=== PATIENT | female | born 1945 ===

== ENCOUNTER 2023-10-07 21:37 | Outpatient (REF) | payer MEDICARE, MEDICAID, SELFPAY ==
[2023-10-07 23:06] LABS: Gentamicin Trough 2.1 ug/mL (<=2.0)
[2023-10-07 23:06] LABS: Gentamicin Peak 5.5 ug/mL (5.0-8.0)
== END 2023-10-07 21:38 | disposition home or self-care (01) ==
LOC: LAB 21:37
PROVIDERS: Visit Provider Family Medicine
DX: Z79.2 Long term (current) use of antibiotics (principal)
CPT/HCPCS: 36415; 80170

== ENCOUNTER 2024-02-18 03:41 | Outpatient (REF) | payer MEDICARE, MEDICAID, SELFPAY | END 2024-02-18 03:42 | disposition home or self-care (01) | LOC: LAB 03:41 | PROVIDERS: Visit Provider Nurse Practitioner Family | DX: Z79.2 Long term (current) use of antibiotics (principal) | CPT/HCPCS: 36415; 80048; 80170 ==